=== PATIENT | female | born 1970 | race Caucasian/White ===

== ENCOUNTER 2024-07-16 09:05 | Day surgery (SDC) | payer OTHER, SELFPAY ==
--- NOTE | 2024-07-08 17:08 | PCM.HP.BLA ---
History and Physical Date of Admission: 07/16/24 HPI: The patient is a 54 year old female presenting for pre-operative visit. She is scheduled for Hysteroscopy D&C, for AUB on 07/16/24. Procedure discussed along with risks, benefits and complications. Other alternatives discussed for management. Consent form signed? Yes. PAST MEDICAL HISTORY PAST MEDICAL HISTORY Diagnosis Date ? Depression ? High cholesterol PAST SURGICAL HISTORY PAST SURGICAL HISTORY Procedure Laterality Date ? APPENDECTOMY 1994 ? COLONOSCOPY SCREENING 2018 ? EXTRACTION ERUPTED TOOTH/EXR unknown date ? LITHOTRIPSY XTRCORP SHOCK WAVE 2009 Renal Lithotripsy CURRENT MEDICATIONS Current Outpatient Medications Medication Sig Dispense Refill ? atorvastatin (LIPITOR) 20 mg tablet Take 20 mg by mouth. ? ARIPiprazole (ABILIFY) 2 mg tablet Take 2 mg by mouth. ? albuterol HFA (PROVENTIL HFA, VENTOLIN HFA) 90 mcg/actuation inhaler Inhale 2 puffs every 4 hours by inhalation route as needed. ? sertraline (ZOLOFT) 100 mg tablet Take 200 mg by mouth. ? Cetirizine 10 mg cap Take 10 mg by mouth. No current facility-administered medications for this visit. ALLERGIES: Patient has no allergy information on record. PERSONAL HISTORY: SOCIAL HISTORY Social History Tobacco Use ? Smoking status: Never ? Smokeless tobacco: Never Vaping Use ? Vaping status: Never Used Substance Use Topics ? Alcohol use: Yes Comment: rare ? Drug use: Not Currently FAMILY HISTORY: FAMILY HISTORY FAMILY HISTORY Problem Relation Age of Onset ? Depression Mother ? Diabetes Mother ? other (hypercholesterolemia [other]) Mother ? other (htn) Mother ? Thyroid Mother Thyroid disease ? Alcohol abuse Father ? other (cva) Father ? Ischemic Heart Disease Father ? Diabetes Father ? other (hypercholesterolemia [other]) Father ? other (TIA) Father ? Parkinson's Father ? other (hypercholesterolemia [other]) Brother ? Brain Cancer Maternal Grandmother ? other (cardiac disorder) Maternal Grandfather ? other (htn) Maternal Grandfather ? other (CVA) Maternal Grandfather ? other (Cardiac disorder) Paternal Grandfather ? other (htn) Paternal Grandfather ? Diabetes Paternal Grandfather REVIEW OF SYMPTOMS: GENERAL: denies fevers or chills ENDOCRINOLOGY: has not been on steroids Cardiology : denies palpitations or chest pain Respiratory: denies SOB or cough Hematology: denies history of prolonged bleeding or easy bruising or VTE Allergy: Denies history of personal or family history of allergy to anesthesia PHYSICAL EXAMINATION: VITALS: Last menstrual period 06/07/2024. GENERAL: The patient is well nourished, well hydrated in no acute distress. , The patient is oriented to time, place, and person. WET PREP: Not indicated IMPRESSION: PMB, thickened endometrium PLAN: The risks/benefits/alternatives and personal involved for the planned hysteroscopy D&C were reviewed with the patient. Her questions were answered to her satisfaction and she desires to proceed. Consent was signed. I reviewed with her postop instructions and expectations. I have reviewed and updated past medical and surgical history, medications and allergies Assessment & Plan Assessment/Plan (1) PMB (postmenopausal bleeding): (2) Endometrial thickening on ultrasound:
[2024-07-10 16:33] LABS: Hematocrit 42.6 % (37-47); Hemoglobin 13.6 g/dL (12.0-15.0); Mean Corp Hgb Conc 31.9 g/dL (32-36); Mean Corpuscular Hgb 27.2 pg (27.0-32.0); Mean Corpuscular Volume 85.2 fL (81-99); Mean Platelet Vol. 9.5 fl (6.2-12.0); Platelet Count 317 K/mm3 (150-450); RBC Distribution Width CV 12.6 % (11.6-14.6); RBC Distribution Width SD 39.2 fl (35.1-43.9); White Blood Count 7.5 K/mm3 (4.4-11.0)
[2024-07-10 16:37] LABS: Internal QC Validated? YES +Cl - CLEAR BKGD; Pregnancy, Urine Negative Negative
[2024-07-10 17:11] LABS: ALB/GLOB Ratio 0.9 RATIO (0.9-2.4); AST(SGOT) 25 U/L (15-37); Alanine Aminotransfer ALT/SGPT 34 U/L (13-56); Albumin, Serum 3.4 g/dL (3.2-5.0); Alkaline Phosphatase 150 U/L (45-117); Anion Gap 5 (5-15); BUN 13 mg/dL (7-18); BUN/Creat Ratio 17.3 RATIO (10-20); Calcium,Total 8.9 mg/dL (8.5-10.1); Chloride 106 mmol/L (98-107); Creatinine, Serum 0.75 mg/dL (0.55-1.02); EST Glomerular Filtration Rate 85 mL/min (>60); Est Glom Filt Rate - Afr Amer 102 mL/min (>60); Follicle Stimulating Hormone 14.9 mIU/mL; Globulin 3.9 g/dL (2.2-4.2); Glucose 82 mg/dL (74-106); Protein, Total 7.3 g/dL (6.4-8.2); Sodium Level 138 mmol/L (136-145)
[2024-07-14 20:08] LABS: Estrogen, Total, Serum 185 pg/mL (40-244)
[2024-07-16] VITALS (9 sets, daily range): BP systolic 106–140; BP diastolic 57–97; PULSE 63–90; RESP 16–18; TEMP 36.3–36.6; O2SAT 93–97; BMI 41.5
[2024-07-16 09:36] LABS: Internal QC Validated? YES +Cl - CLEAR BKGD; Pregnancy, Urine Negative Negative
[2024-07-16] MEDS: Ketorolac 30 MG/ML Syringe IV (09:49)
[2024-07-16] MEDS: Acetaminophen 500 MG Tablet 1000 MG PO (09:49)
--- NOTE | 2024-07-16 10:29 | PCM.PRE.AN2 ---
ASA Classification* ASA Classification ASA Classification: 3 Assessment & Plan Anesthesia* Anesthesia Assessment Anesthesia Assessment: Discussed sedation and/or anesthesia options, risks, benefits, and alternatives with patient/parents/legal guardian/POA. Questions invited. The patient/parents/legal guardian/POA seems to understand and agrees to proceed with anesthesia plan. Reviewed the physical assessment, medical history, allergy history and patient home medications list prior to surgery/procedure/anesthetic and documented any changes. Performed airway and anesthesia risk assessments. Anesthesia Type Anesthesia Type: MAC (see written pre anesthesia record for full assessment) Anesthesia Focused Assessment* Temperature: 97.3 F Pulse Rate: 63 Blood Pressure: 140/90 Respiratory Rate: 16 Pulse Ox: 97 Airway Assessment Mouth opens: >3 cm Mallampati Score: II Focused Labs Anesthesia Preop lab: CBC WBC 7.5 K/mm3 (4.4-11.0) 07/10/24 16:08 RBC 5.00 M/mm3 (4.2-5.4) 07/10/24 16:08 Hgb 13.6 g/dL (12.0-15.0) 07/10/24 16:08 Hct 42.6 % (37-47) 07/10/24 16:08 Plt Count 317 K/mm3 (150-450) 07/10/24 16:08 CHEMISTRY Potassium 4.0 mmol/L (3.5-5.1) 07/10/24 16:08 Sodium 138 mmol/L (136-145) 07/10/24 16:08 BUN 13 mg/dL (7-18) 07/10/24 16:08 Creatinine 0.75 mg/dL (0.55-1.02) 07/10/24 16:08 Glucose 82 mg/dL (74-106) 07/10/24 16:08 COAG Urine Test Negative Negative 07/16/24 09:20 Pre-Assessment Diagnosis/Proposed Procedure Planned Operative Procedure(s): (N/A) Hysteroscopy,D&C, possible polyp resection, Symphion Anesthesia History 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 When Was Last Pacemaker Check QUESTION #4 FULL TEXT: You/Your Family Experience fever (hyperthermia) with Anesthesia Last Oral Intake Last Oral intake: Last Oral Intake NPO since 22:00 07/16/24 09:31 Meds taken in AM with sips of No 07/16/24 09:31 water? Meds patient instructed to take am of surgery PONV PONV - associate professor of theology: PONV - associate professor of theology Female Yes 07/09/24 13:28 HX of Motion Sickness Yes 07/09/24 13:28 HX of N/V After Surgery No 07/09/24 13:28 Non-Smoker Yes 07/09/24 13:28 Duration of Surgery greater No 07/09/24 13:28 than 60 minutes Number of Risk Factors 3 07/09/24 13:28 PONV Score Moderate Risk 07/09/24 13:28 Height & Weight Height & Weight: Anesthesia: Height & Weight Height 5 ft 3 in 07/16/24 09:31 Weight: 106.5 kg 07/16/24 09:31 Body Mass Index (BMI) 41.5 07/16/24 09:31 Respiratory Assessment Respiratory Assessment - associate professor of theology: Respiratory Tract Infection Hx - associate professor of theology Hx Respiratory Tract Infection No 07/09/24 13:28 STOP Sleep Apnea STOP Sleep Apnea - associate professor of theology: STOP Sleep Apnea - associate professor of theology Hx Hypertension No 07/09/24 13:28 Hx Sleep Apnea No 07/09/24 13:28 CPAP BIPAP Do you snore loudly (louder No 07/09/24 13:28 than talking or can be heard Do you often feel tired/ No 07/09/24 13:28 fatigued/ sleepy during daytime? Has anyone observed you stop No 07/09/24 13:28 breathing during sleep? STOP Results Negative 07/09/24 13:28 QUESTION #5 FULL TEXT : Do you snore loudly (louder than talking or can be heard through closed doors)? 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 Specify any problems Hx of Preganancy in last 3 N/A 07/09/24 13:28 Months Nurse Filling Out Transfusion NBUCHER 07/09/24 13:28 & Questions: Date: 07/09/24 07/09/24 13:28 Time: 13:29 07/09/24 13:28 Patient unable to answer at this time (ie. confused, unrespo /Reproduction History /Reproductive History - associate professor of theology: /Reproductive Hx- associate professor of theology Hx Now No 07/09/24 13:28 Gestational Age (in weeks): EDC: Hx Hx Para Hx Section SAB No 07/09/24 13:28 Active Medications Active Medications: Current Medications Generic Name Dose Route Start Last Admin Trade Name Freq PRN Reason Stop Dose Admin Acetaminophen 1,000 mg 07/16/24 10:35 07/16/24 09:49 Acetaminophen 500 Mg Tablet PO 07/16/24 10:36 1,000 mg PREOP ONE Administration Ketorolac Tromethamine 30 mg 07/16/24 10:35 07/16/24 09:49 Ketorolac 30 Mg/Ml Syringe IV 07/16/24 10:36 30 mg PREOP ONE Administration PFSH Medical History Wears glasses Depression High cholesterol Migraine headache Non-smoker History of kidney stones Home Medications ?Medication ?Instructions ?Recorded ?Last Taken ?Type aripiprazole 2 mg tablet 2 mg PO DAILY 07/09/24 Unknown History atorvastatin 20 mg tablet 20 mg PO DAILY 07/09/24 Unknown History sertraline 100 mg tablet 100 mg PO BID 07/09/24 Unknown History Allergy/AdvReac Type Severity Reaction Status Date / Time tree nut Allergy Severe Anaphylaxis Verified 07/09/24 13:27 Surgical History History of appendectomy Social History Smoking Status: Never smoker Review of Systems (Anesthesia) ROS Narrative System reviewed and no additional complaints, except as documented.
--- NOTE | 2024-07-16 10:35 | EMB_PTH ---
PATHOLOGY RESULTS PATIENT: JONO LEMON LOC: [facility] [place] U#:[id number] AGE/SX: 54/F ROOM: RE07/16/[address]: Dr. Purvi Hendrix MD : 1970 BED: DIS: 07/16/2024 SPEC #: [id number] RECD: 07/16/24 13:47 STATUS: OBDULIO GALINDO #: [id number] MELANY: 07/16/24 10:[address]: Purvi Hendrix DEPT: SURGICAL PATHOLOGY RECD BY: Isaac Lauren ENTERED: 07/16/24 14:39 SP TYPE: ENDOM BX/C HEBERT DR: Dr. Jewell Aguilar MD Tissues: Endometrium, NOS Procedures: Surgery Specimen Level IV HEADER OPERATION: Hysteroscopy, D&C PRE-OP DIAGNOSIS: Post menopausal bleeding, endometrial thickening on ultrasound TISSUE SUBMITTED: Endometrial curettings MICROSCOPIC DIAGNOSIS Endometrium, curettings: Polypoid fragments of simple cystic change. Perimenstral endometrium with glandular and stromal breakdown. Rare fragments of benign squamous and endocervical mucosa. See comment. 07/17/2024 COMMENT Benign endometrial polyps are likely. Clinical correlation is suggested. MICROSCOPIC DESCRIPTION Slides are reviewed. GROSS DESCRIPTION Received in fixative is one container labeled with the patient's name and designated Endometrial curettings. The specimen consists of multiple irregular fragments of pink-lundy hemorrhagic soft tissue that in aggregate measure 4.0 x 3.0 x 0.2 cm. The specimen is totally submitted in two cassettes. 07/16/2024 TC:5 CPT:02319
[2024-07-16] MEDS: Lidocaine 1% /Epi 1:100 (20ml) 20 ML Vial (10:51)
--- NOTE | 2024-07-16 11:05 | DCINST_ITS ---
Discharge Instructions Diet Discharge Diet: No restrictions Activity Discharge Activity: May Drive (07/17/24) and May Take a Tub Bath (in 1 week) Return to work on:: 07/17/24 May shower in (days): 1 May resume sexual activity in: 1-2 weeks and 2 weeks Lifting Restrictions: none Dressing / Incision Call your doctor if your incision/area has: Sudden Increased Bleeding and Foul Smelling Discharge Call your doctor if you observe: Fever of 101 or Higher and Using more than 1 pad per hour (for 2 hrs in a row) Follow Up Care Please Follow Up With: Purvi Hendrix MD When: You do not need a postop appointment. We will contact you next week with your pathology results. Send a CallYourPrice message or call [phone] to make an appointment or with any concerns. Test Results: Test results from this visit will be discussed in further detail at your follow- up appointment, if applicable. Discharge Plan Admission Primary Reason for Your Visit: Hysteroscopy D&C Attending Provider: Purvi Hendrix Primary Care Provider: Jewell Aguilar Instructions Print Language: Bengali Discharge Orders/Prescriptions Prescriptions: Continued atorvastatin 20 mg tablet 20 mg PO DAILY sertraline 100 mg tablet 100 mg PO BID aripiprazole 2 mg tablet 2 mg PO DAILY Disposition Disposition (needs filled in before D/C Order can be placed): Home, Self Care
--- NOTE | 2024-07-16 11:06 | PCM.OPRPT ---
Problems Associated Problem List Diagnoses (1) Endometrial thickening on ultrasound: (2) PMB (postmenopausal bleeding): Operative Report (Standard) Operative Information Surgery/Procedure Performed: Hysteroscopy D&C Surgeon: Purvi Hendrix Date of Procedure: 07/16/24 Procedure Start Time: 10:48 Procedure Stop Time: 10:57 Pre-Operative Diagnosis: Abnormal uterine bleeding, thickened endometrium on the pelvic Post-Operative Diagnosis: Same Select all DRAINS/GRAFTS/IMPLANTS that apply: None Type of Anesthesia: MAC/Supplemental/Local Special Medications: None Estimated Blood Loss: 10 Fluids Replaced: 0 Specimen collected: Yes Description of specimen(s) removed: Endometrial curettings Description of surgery: The patient was taken to the OR where she was prepped and draped in dorsal lithotomy position. The weighted speculum was placed in the vagina and the anterior lip of the cervix was grasped with a single-tooth tenaculum. A paracervical block was administered with 1% lidocaine with 1-100,000 epinephrine solution. The cervix was dilated serially with Hegar dilators. The 5mm hysteroscope was placed into the uterine cavity and the above findings were noted. Bilateral tubal ostia were identified. The hysteroscope was removed. A gentle sharp curettage was done of the uterine cavity. The instruments were removed from the vagina. The specimen was handed off and sent to pathology. All sponge and needle counts were correct. Vaginal sweep was performed by me. The patient was awakened and taken to the recovery room in stable condition. Hysteroscopic fluid deficit 50 cc of normal saline Findings: Endometrial cavity: Normal, no fibroids or polyps noted Cervix: Normal Vagina: Normal Surgical Findings: Normal endometrium, no focal abnormalities. Normal tubal ostia bilaterally. Normal cervix and vagina. 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
--- NOTE | 2024-07-16 11:06 | PCM.POST.ANE ---
Anesthesia: Postop Eval I Current Vital Signs Temperature: 97.8 F Pulse Rate: 90 Blood Pressure: 109/57 Respiratory Rate: 16 Pulse Ox: 93 Oxygen Delivery Method: Room Air Assessment Airway patent: Yes Spontaneous unlabored respirations: Yes Mental status: Awake and Calm nausea: No Vomiting: No Anesthesia Complication: No Fluid Hydration Crystalloid volume administer (ml): 10 Total IV fluid infused: 10 Progress Note Anesthesia document: Postop Eval 1 completed: Yes
--- NOTE | 2024-07-16 11:13 | PCM.POSTANE2 ---
Anesthesia Postop Eval I Sum Postop Eval Completion status Anesthesia document: Postop Eval 1 completed: Yes Anesthesia Postop Eval I Summary Anesthesia Postop Eval I Summary: Anesthesia Postop Eval I: Assessment Summary Airway patent Yes 07/16/24 11:07 LEARNING DESIGN SPECIALIST.JASSOBJeremy Spontaneous unlabored Yes 07/16/24 11:07 LEARNING DESIGN SPECIALISTALEXEI respirations Mental status Awake,Calm 07/16/24 11:07 LEARNING DESIGN SPECIALIST.RICARDO nausea No 07/16/24 11:07 LEARNING DESIGN SPECIALIST.RICARDO Vomiting No 07/16/24 11:07 LEARNING DESIGN SPECIALISTALEXEI Anesthesia Postop Eval I: Fluid Summary Crystalloid volume administer 10 07/16/24 11:07 TERRY.RICARDO (ml) Colloids volume administered ( ml) Blood Product volume administered (ml) Total IV fluid infused 10 07/16/24 11:07 CHRIST Anesthesia Postop Eval I: Summary Notes Anesthesia Complication No 07/16/24 11:07 CHRIST Anesthesia Complication Comment: Post-operative progress note Anesthesia: Postop Eval II Evaluation Mental status: Awake Pain Level: 0 nausea: No Vomiting: No
== END 2024-07-16 12:03 | disposition home or self-care (01) ==
LOC: SDC 09:06
PROVIDERS: Anesthesiology; PCP Internal Medicine; Referring Provider Obstetrics & Gynecology; Visit Provider Obstetrics & Gynecology
PROC: 0UB98ZZ Excision of Uterus, Via Natural or Artificial Opening Endoscopic (ICD-10-PCS; CPT 58558; principal; 2024-07-16 10:20)
DX: N95.0 Postmenopausal bleeding (principal); E78.00 Pure hypercholesterolemia, unspecified; F32.A Depression, unspecified; Z79.899 Other long term (current) drug therapy
CPT/HCPCS: 58558; 00952; 36415; 80053; 81025; 82672; 83001; 85027; 88305; A4216; J2405

== ENCOUNTER 2024-10-22 07:34 | Day surgery (SDC) | payer OTHER, SELFPAY ==
--- NOTE | 2024-09-30 15:46 | HP.PCM_ITS ---
History and Physical Date of Admission: 10/22/24 HPI: The patient is a 54 year old female presenting for pre-operative visit. She is scheduled for LAVH and BSO, possible cystoscopy, for AUB, uterine fibroids on 10/22/24. Procedure discussed along with risks, benefits and complications. Other alternatives discussed for management. Consent form signed? Yes. PAST MEDICAL HISTORY PAST MEDICAL HISTORY Diagnosis Date ? Depression ? High cholesterol PAST SURGICAL HISTORY PAST SURGICAL HISTORY Procedure Laterality Date ? APPENDECTOMY 1994 ? COLONOSCOPY SCREENING 2018 ? D&C, DIAG AND/OR THERAPEUTIC 07/16/2024 hysteroscopy ? EXTRACTION ERUPTED TOOTH/EXR unknown date ? LITHOTRIPSY XTRCORP SHOCK WAVE 2008 Renal Lithotripsy CURRENT MEDICATIONS Current Outpatient Medications Medication Sig Dispense Refill ? SUMAtriptan (IMITREX) 50 mg tablet ? MAGNESIUM ORAL Take by mouth. ? norethindrone (AYGESTIN) 5 mg tablet 1 tab 3x/day until bleeding stops. 1 tab 2x/day x 2 days. 1 tab daily x 5 days 35 tablet 0 ? atorvastatin (LIPITOR) 20 mg tablet Take 20 mg by mouth. ? ARIPiprazole (ABILIFY) 2 mg tablet Take 2 mg by mouth. ? albuterol HFA (PROVENTIL HFA, VENTOLIN HFA) 90 mcg/actuation inhaler Inhale 2 puffs every 4 hours by inhalation route as needed. ? sertraline (ZOLOFT) 100 mg tablet Take 200 mg by mouth. No current facility-administered medications for this visit. ALLERGIES: Nut - Unspecified PERSONAL HISTORY: SOCIAL HISTORY Social History Tobacco Use ? Smoking status: Never ? Smokeless tobacco: Never Vaping Use ? Vaping status: Never Used Substance Use Topics ? Alcohol use: Yes Comment: rare ? Drug use: Not Currently FAMILY HISTORY: FAMILY HISTORY FAMILY HISTORY Problem Relation Age of Onset ? Depression Mother ? Diabetes Mother ? other (hypercholesterolemia [other]) Mother ? other (htn) Mother ? Thyroid Mother Thyroid disease ? Alcohol abuse Father ? other (cva) Father ? Ischemic Heart Disease Father ? Diabetes Father ? other (hypercholesterolemia [other]) Father ? other (TIA) Father ? Parkinson's Father ? other (hypercholesterolemia [other]) Brother ? Brain Cancer Maternal Grandmother ? other (cardiac disorder) Maternal Grandfather ? other (htn) Maternal Grandfather ? other (CVA) Maternal Grandfather ? other (Cardiac disorder) Paternal Grandfather ? other (htn) Paternal Grandfather ? Diabetes Paternal Grandfather REVIEW OF SYMPTOMS: GENERAL: denies fevers or chills ENDOCRINOLOGY: has not been on steroids Cardiology : denies palpitations or chest pain Respiratory: denies SOB or cough Hematology: denies history of prolonged bleeding or easy bruising or VTE Allergy: Denies history of personal or family history of allergy to anesthesia PHYSICAL EXAMINATION: VITALS: Blood pressure 142/86, weight 111.1 kg (245 lb), last menstrual period 09/23/2024. GENERAL: The patient is well nourished, well hydrated in no acute distress. , The patient is oriented to time, place, and person. NECK: Supple. No lynphadenopathy, normal thyroid, no thyromegaly. LUNGS: Clear to auscultation bilaterally. no wheezes, rhonchi or rales HEART: Regular rate and rhythm, Normal heart sounds, and No murmurs or gallops GENITALIA: Normal external genitalia, Urethral meatus normal, Bladder nontender, normal vagina and normal vaginal tone, normal cervix, normal uterus, size and consistency, normal adnexa without masses or tenderness, and perineum WNL PELVIC US 06/25/24: Indication Postmenopausal bleeding, fibroid Impression Anteverted fibroid uterus that measures 98 mm x 47 mm x 59 mm. The largest fibroids are described below. Endometrium measures 7.8 mm which is abnormally thickened in menopause. Normal appearing left ovary. Right ovary is not visualized. No adnexal masses were observed. There is no free fluid visualized in the peritoneal cavity. Recommendations Recommend endometrial evaluation as clinically indicated. Menstrual History LMP on 06/12/2024. Cycle: irregular cycle Method Transabdominal, transvaginal, 3D ultrasound examination, Color Doppler exam ination Uterus Uterus: Visualized Uterus position: anteverted Description of uterine malformations: none Myometrium: heterogeneous Endometrium: homogenous Cervix details: cystic lesions identified suggesting superficial Nabothian cysts Uterus length 98 mm Uterus width 59 mm Uterus height 47 mm Uterus Vol 139.8 cm? Endometrial thickness, total 7.8 mm Uterine fibroid D1 8 mm Uterine fibroid D2 8 mm Uterine fibroid D3 10 mm Uterine fibroid mean 8.7 mm Uterine fibroid vol 0.335 cm? Uterine fibroids findings: Left lateral anterior wall. intramural Right Ovary Rt ovary: Not visualized Left Ovary Lt ovary: Visualized Lt ovary morphology: premenopausal normal follicular Lt ovary D1 34 mm Lt ovary D2 24 mm Lt ovary D3 22 mm Lt ovary Vol 9.4 cm? Cul de Sac Visualized. no free fluid visualized IMPRESSION: uterine fibroids, AUB PLAN: The risks/benefits/alternatives and personal involved for the planned LAVH, BSO, possible cystoscopy were reviewed with the patient. Her questions were answered to her satisfaction and she desires to proceed. Consent was signed. I reviewed with her postop instructions and expectations. I have reviewed and updated past medical and surgical history, medications and allergies Assessment & Plan Assessment/Plan (1) Abnormal uterine bleeding: (2) Uterine fibroid:
--- NOTE | 2024-10-12 08:03 | EKG12_ITS ---
Test Reason : PREOP Blood Pressure : */* mmHG Vent. Rate : 69 BPM Atrial Rate : 69 BPM P-R Int : 150 ms QRS Dur : 78 ms QT Int : 390 ms P-R-T Axes : 51 3 31 degrees QTcB Int : 417 ms Normal sinus rhythm with sinus arrhythmia Normal ECG Confirmed by JOEY SORIANO, YUSUF ([id number]), editorial clerk LILY ZAFAR ([id number]) on 10/12/2024 11:02:53 AM Referred By: Purvi Hendrix Confirmed By: YUSUF COOK MD
[2024-10-12 09:26] LABS: Magnesium 2.5 mg/dL (1.6-2.6)
[2024-10-22] VITALS (11 sets, daily range): BP systolic 108–137; BP diastolic 63–80; PULSE 67–80; RESP 16–18; TEMP 36.6–36.9; O2SAT 90–100; BMI 43.5
[2024-10-22 08:26] LABS: Internal QC Validated? YES +Cl - CLEAR BKGD; Pregnancy, Urine Negative Negative; Record Kit Lot#,Urine Preg 885059
[2024-10-22 08:26] LABS: Bedside Glucose 106 mg/dL (74-106)
[2024-10-22] MEDS: Gabapentin 600 MG Tablet PO (08:29)
[2024-10-22] MEDS: Acetaminophen 500 MG Tablet 1000 MG PO (08:29)
[2024-10-22] MEDS: Enoxaparin 40 MG/0.4 ML Syringe SC (08:30)
[2024-10-22] MEDS: Celecoxib 200 MG Capsule 400 MG PO (08:30)
[2024-10-22] MEDS: Scopolamine 1mg/72hr Patch 1 PATCH TD (08:30)
[2024-10-22] MEDS: Phenazopyridine 95 MG Tablet 190 MG PO (08:30)
[2024-10-22] MEDS: 0.9% Normal Saline (1000mL) 1,000 ML 15 ML IV (08:31)
[2024-10-22] MEDS: Magnesium 1 GM over 15 mins IV (08:31)
--- NOTE | 2024-10-22 09:35 | PCM.PRE.AN2 ---
ASA Classification* ASA Classification ASA Classification: 3 Assessment & Plan Anesthesia* Anesthesia Assessment Anesthesia Assessment: Discussed sedation and/or anesthesia options, risks, benefits, and alternatives with patient/parents/legal guardian/POA. Questions invited. The patient/parents/legal guardian/POA seems to understand and agrees to proceed with anesthesia plan. Reviewed the physical assessment, medical history, allergy history and patient home medications list prior to surgery/procedure/anesthetic and documented any changes. Performed airway and anesthesia risk assessments. Anesthesia Type Anesthesia Type: General History Source History Obtained from:: Patient and Chart Anesthesia Focused Assessment* Temperature: 98.4 F Pulse Rate: 67 Blood Pressure: 137/68 Respiratory Rate: 16 Pulse Ox: 100 Oxygen Delivery Method: Room Air Airway Assessment Mouth opens: 2 cm Mallampati Score: III Teeth Condition: Caps/Crowns (Left lower molar has a crown. It is tight.) Neck Range of motion (ROM): Full ROM Focused Labs Anesthesia Preop lab: CBC WBC 7.5 K/mm3 (4.4-11.0) 07/10/24 16:08 07/10/24 RBC 5.00 M/mm3 (4.2-5.4) 07/10/24 16:08 07/10/24 Hgb 13.6 g/dL (12.0-15.0) 07/10/24 16:08 07/10/24 Hct 42.6 % (37-47) 07/10/24 16:08 07/10/24 Plt Count 317 K/mm3 (150-450) 07/10/24 16:08 07/10/24 CHEMISTRY Potassium 4.0 mmol/L (3.5-5.1) 07/10/24 16:08 07/10/24 Sodium 138 mmol/L (136-145) 07/10/24 16:08 07/10/24 Magnesium 2.5 mg/dL (1.6-2.6) 10/12/24 08:10/12/24 BUN 13 mg/dL (7-18) 07/10/24 16:08 07/10/24 Creatinine 0.75 mg/dL (0.55-1.02) 07/10/24 16:08 07/10/24 Glucose 82 mg/dL (74-106) 07/10/24 16:08 07/10/24 POC Glucose 106 mg/dL (74-106) 10/22/24 08:06 10/22/24 COAG Urine Test Negative Negative 10/22/24 08:02 10/22/24 Pre-Assessment Diagnosis/Proposed Procedure Planned Operative Procedure(s): (B) Hysterectomy,LAVH, bilateral salpingo oophorectomy, possible cystoscopy Anesthesia History Anesthesia History - registered travel nurse: Anesthesia History - registered travel nurse Hx Hospitalization No 10/08/24 14:17 Any Problems With Anesthesia No 10/08/24 14:17 Cholinesterase deficiency No 10/08/24 14:17 You/Your Family Experience No 10/08/24 14:17 fever (hyperthermia) with Relationship Recent Exposure to Contagious No 10/22/24 08:17 Disease Does patient have nerve No 10/08/24 14:17 stimulator Patient instructed to have device shut off --Does patient have Pacemaker No 10/22/24 08:18 or ICD? When Was Last Pacemaker Check QUESTION #4 FULL TEXT: You/Your Family Experience fever (hyperthermia) with Anesthesia Last Oral Intake Last Oral intake: Last Oral Intake NPO since 06:00 10/22/24 08:18 Meds taken in AM with sips of No 10/22/24 08:18 water? Meds patient instructed to take am of surgery Any additional information?: Yes NPO since: 06:00 (Patient took her preop Ensure at 6 AM.) PONV PONV - registered travel nurse: PONV - registered travel nurse Female Yes 10/08/24 14:17 HX of Motion Sickness Yes 10/08/24 14:17 HX of N/V After Surgery No 10/08/24 14:17 Non-Smoker Yes 10/08/24 14:17 Duration of Surgery greater Yes 10/08/24 14:17 than 60 minutes Number of Risk Factors 4 10/08/24 14:17 PONV Score Severe Risk 10/08/24 14:17 Height & Weight Height & Weight: Anesthesia: Height & Weight Height 5 ft 3 in 10/22/24 08:18 Weight: 111.584 kg 10/22/24 08:18 Body Mass Index (BMI) 43.5 10/22/24 08:18 Respiratory Assessment Respiratory Assessment - registered travel nurse: Respiratory Tract Infection Hx - registered travel nurse Hx Respiratory Tract Infection No 10/08/24 14:17 STOP Sleep Apnea STOP Sleep Apnea - registered travel nurse: STOP Sleep Apnea - registered travel nurse Hx Hypertension No 10/08/24 14:17 Hx Sleep Apnea No 10/08/24 14:17 CPAP BIPAP Do you snore loudly (louder No 10/08/24 14:17 than talking or can be heard Do you often feel tired/ No 10/08/24 14:17 fatigued/ sleepy during daytime? Has anyone observed you stop No 10/08/24 14:17 breathing during sleep? STOP Results Negative 10/08/24 14:17 QUESTION #5 FULL TEXT : Do you snore loudly (louder than talking or can be heard through closed doors)? Tobacco Use History Tobacco Use History - registered travel nurse: Tobacco Use History - registered travel nurse Tobacco Use Smoking Status Never smoker 10/08/24 14:17 Hx Tobacco Use No 10/08/24 14:17 Years Smoking Packs Smoked per Day Smoking Cessation Date was within the last 15 years Hx Smoking Cessation Date Hx Smoking Cessation Counseling Hematologic Medial History Hematologic Hx - registered travel nurse: Hematologic Medical Hx - customer solutions specialist Hx of Blood Transfusion No 10/08/24 14:17 Hx of Transfusion in last 3 No 10/08/24 14:17 Months Date of Last Transfusion (if within last 3 months) Ever experience any problems No 10/08/24 14:17 with transfusion(s)? Specify any problems Hx of Preganancy in last 3 N/A 10/08/24 14:17 Months Nurse Filling Out Transfusion NBUCHER 10/08/24 14:17 & Questions: Date: 10/08/24 10/08/24 14:17 Time: 14:18 10/08/24 14:17 Patient unable to answer at this time (ie. confused, unrespo /Reproduction History /Reproductive History - registered travel nurse: /Reproductive Hx- registered travel nurse Hx Now No 10/08/24 14:17 Gestational Age (in weeks): EDC: Hx Hx Para Hx Section SAB No 10/08/24 14:17 Active Medications Active Medications: Current Medications Generic Name Dose Route Start Last Admin Trade Name Freq PRN Reason Stop Dose Admin Lactated Ringer's 1,000 mls @ 40 mls/hr 10/22/24 07:30 IV .Q25H NICOLAS Lactated Ringer's 1,000 mls @ 40 mls/hr 10/22/24 08:30 IV .Q25H NICOLAS Sodium Chloride 1,000 mls @ 15 mls/hr 10/22/24 08:30 10/22/24 08:31 IV 10/27/24 21:49 15 mls/hr .Q48H NICOLAS Administration Protocol Insulin Human Lispro 0 unit 10/22/24 07:30 Insulin Lispro 100 Unit/Ml Insuln.Pen SC 10/22/24 13:30 Q4H PRN PRN BG >/= 180, SEE PROTOCOL Protocol PFSH Medical History Wears glasses Depression High cholesterol Migraine headache Non-smoker History of kidney stones Home Medications ?Medication ?Instructions ?Recorded ?Last Taken ?Type aripiprazole 2 mg tablet 2 mg PO DAILY 07/09/24 10/21/24 06:30 History atorvastatin 20 mg tablet 20 mg PO DAILY 07/09/24 10/21/24 06:30 History sertraline 100 mg tablet 200 mg PO DAILY 07/09/24 10/21/24 06:30 History norethindrone acetate 5 mg tablet 5 mg PO DAILY 10/08/24 10/21/24 06:30 History magnesium citrate 100 mg tablet 100 mg PO DAILY 10/22/24 10/21/24 06:30 History Allergy/AdvReac Type Severity Reaction Status Date / Time tree nut Allergy Severe Anaphylaxis Verified 10/22/24 08:11 Surgical History History of D&C (07/16/24) History of appendectomy (~1994) Social History Smoking Status: Never smoker Review of Systems (Anesthesia) ROS Narrative System reviewed and no additional complaints, except as documented.
--- NOTE | 2024-10-22 09:40 | HYST_PTH ---
PATIENT: JONO LEMON LOC: [facility] [place] U#:[id number] AGE/SX: 54/F ROOM: RE10/22/[address]: Dr. Purvi Hendrix MD : 1970 BED: DIS: 10/22/2024 SPEC #: [id number] RECD: 10/22/24 14:45 STATUS: OBDULIO REPetr #: [id number] MELANY: 10/22/24 09:[address]: Purvi Hendrix DEPT: SURGICAL PATHOLOGY RECD BY: Isaac Lauren ENTERED: 10/23/24 08:32 SP TYPE: HYSTERECT OTHR DR: Dr. Jewell Aguilar MD Tissues: Uterus, NOS Procedures: Surgery Specimen Level V HEADER OPERATION: Hysterectomy, LAVH, bilateral salping-oopherectomy PRE-OP DIAGNOSIS: Abnormal uterine bleeding, uterine fibroid TISSUE SUBMITTED: Uterus, cervix, bilateral ovaries and fallopian tubes MICROSCOPIC DIAGNOSIS Uterus, cervix, bilateral ovaries and fallopian tubes, hysterectomy, bilateral salping-oopherectomy: Cervix - Mild chronic inflammation squamous metaplasia. Endometrium - Weakly proliferative endometrium. Myometrium - Adenomyosis. Bilateral fallopian tubes- No pathologic diagnosis. Right ovary- Physiologic hemorrhagic cyst. Left ovary- Mesothelial inclusion cysts. Left paratubal cysts. . 10/26/2024 MICROSCOPIC DESCRIPTION Slides are reviewed. GROSS DESCRIPTION Received in fixative is one container labeled with the patient's name and designated uterus, cervix, bilateral ovaries and fallopian tubes. The specimen consists of a hysterectomy specimen consisting of uterus with cervix and attached bilateral fallopian tubes and ovaries. The uterus with cervix weighs 125 gm and measures 9.5 x 8 x 6 cm. The serosal surface is lundy glistening. The ectocervical mucosa is unremarkable. The external os is oval in contour. The endocervical canal measures 3 cm in length and the endocervical mucosa is lundy glistening and unremarkable. The triangular endometrial cavity measures 5 cm in length and 2.5 cm in width. The endometrium is lundy, glistening without any mass lesions and measures 0.1 cm in thickness. Sections of the uterine wall do not reveal any mass lesions and measures up to 2.5cm in thickness. Right fallopian tube measures 5.5cm in length and 0.6cm in diameter. Fimbrial end is identified. Right ovary measures 2.5 x 1.5 x 1.3cm. Sections reveal a hemorrhagic cyst measuring 0.6cm in greatest dimension. The left fallopian tube has similar appearance to right and measures 5.5cm in length and 0.6cm in diameter. Fimbrial end is identified. Two paratubal cysts are noted measuring 0.6 and 2.5cm in greatest dimensions and filled with clear fluid. The left ovary has similar appearance as to right and measures 2 x 2 x 1.2cm. Sections reveal unremarkable cut surfaces. No tuboovarian adhesions are identified on right or left side. Atomic Process Engineer sections are submitted in ten cassettes as follows: 1 - anterior cervix, 2 - posterior cervix, 3 & 4 - anterior uterine wall, 5 & 6 - posterior uterine wall, 7- right fallopian tube, 8- right ovary, 9- left fallopian tube and paratubal cysts, 10- left ovary. SJ: 10/23/2024 TC:5 CPT: 35482
[2024-10-22] MEDS: Cefazolin 2 GM in Syringe 10 ML IV (10:26)
[2024-10-22] MEDS: dexAMETHasone 4 MG/ML Vial 8 MG IV (10:34)
[2024-10-22] MEDS: Lidocaine 1%/Epi 1:200 (30ml) 30 ML AMPUL (10:58)
[2024-10-22] MEDS: Bupivacaine Mpf 0.5% 30 ML VIAL (10:58)
[2024-10-22] MEDS: Ondansetron 4 MG/2 ML Vial IV (11:56)
--- NOTE | 2024-10-22 12:18 | PCM.POST.ANE ---
Anesthesia: Postop Eval I Current Vital Signs Temperature: 97.9 F Pulse Rate: 80 Blood Pressure: 134/78 Respiratory Rate: 18 Pulse Ox: 93 Oxygen Delivery Method: Nasal Cannula Oxygen Flow Rate (L/min): 3 Assessment Airway patent: Yes Spontaneous unlabored respirations: Yes Mental status: Awake and Calm nausea: No Vomiting: No Anesthesia Complication: No Fluid Hydration Crystalloid volume administer (ml): 1,200 Total IV fluid infused: 1,200 Progress Note Anesthesia document: Postop Eval 1 completed: Yes
--- NOTE | 2024-10-22 12:52 | OP.PCM_ITS ---
Problems Associated Problem List Diagnoses (1) Uterine fibroid: (2) Abnormal uterine bleeding: Operative Report (Standard) Operative Information Date of Procedure: 10/22/24 Pre-Operative Diagnosis: AUB, uterine fibroids Post-Operative Diagnosis: same Surgery/Procedure Performed: LAVH, bilateral salpingoophorectomy route vending machine servicer: Yes Equipment Operator: Digna Posadas Tasks completed by language assistant: Closing, Hemostasis: Electrocautery, Trocar and Retracting Additional pediatric medical assistant?: Yes Additional National Sales Director #2: Yareli Singer MS3 Tasks completed by pediatric medical assistant #2: Closing and Retracting Additional pediatric medical assistant?: No Type of Anesthesia: General RN Documented Start/Stop Times: Operation Date: 10/22/24 09:40 Case Time Into Pre-Op 10/22/24 07:48 Out of Pre-Op 10/22/24 10:16 Anesthesia Start 10/22/24 10:20 Into Room 10/22/24 10:20 Procedure Start 10/22/24 10:39 Procedure End 10/22/24 12:03 Anesthesia End 10/22/24 12:15 Out of Room 10/22/24 12:15 Into Recovery 10/22/24 12:16 Procedure Start Time: 10:39 Procedure Stop Time: 12:03 Select all DRAINS/GRAFTS/IMPLANTS that apply: None Special Medications: none Estimated Blood Loss: 30 Fluids Replaced: 1200 cc LR Specimen collected: Yes Description of specimen(s) removed: uterus, cervix, bilateral fallopian tubes and ovaries Description of surgery: The patient was taken to the operating room where she was prepped and draped in the dorsal lithotomy position. Her arms were tucked to the side and padded and her legs were placed in the yellowfin stirrups. Care was taken to ensure that she was placed in a neurologically safe and neutral position. A weighted specu lum was placed in the vagina and the anterior lip of the cervix was grasped with a single-tooth tenaculum. The uterus sounded to 8 centimeters. The Mckenna uterine manipulator was placed and secured. The Judd catheter was placed to straight drain. Attention was turned to the abdominal portion of the case. Before skin incisions were made they were infiltrated with 0.5% Marcaine solution for local anesthetic. A 5 mm intraumbilical incision was made and while tenting the anterior abdominal wall up with towel clamps a 5 mm blade less trocar and sleeve were advanced directly into the peritoneal cavit using the visible. Peritoneal placement was confirmed with the laparoscope the pneumoperitoneum was created, and the underlying abdominal contents were intact. The patient was placed in Trendelenburg and the above findings were noted. Right and left lateral 5 mm trochars were placed under direct visualization without difficulty. There were some filmy adhesions of colonic epiploica to the left round ligament and these were taken down with blunt and sharp dissection without difficulty. There is also some filmy adhesions to the posterior cervix to some adipose tissue surrounding the colon and this was taken down without difficulty. The ureters were identified and then the infundibulopelvic ligaments were clamped, sealed and transected with the LigaSure device and the pedicles were hemostatic. The round ligaments were clamped sealed and transected and a window was made in the peritoneum. The bladder flap was dissected down with the LigaSure device and blunt dissection and the uterine arteries were then skeletonized. The uterine arteries were clamped, sealed and transected on both sides with the LigaSure device. At this point the pedicles were all examined and found to be hemostatic. Attention was turned to the vaginal portion of the case. 1% lidocaine with dilute epinephrine solution was used to infiltrate the vaginal epithelium around the cervix. An incision was made from around the entire vaginal epithelium and it was dissected back with blunt and sharp dissection. The anterior colpotomy incision was made. The posterior cul-de-sac was entered sharply. The uterosacral ligaments were clamped with Iza clamps, transected and suture-ligated. The lower part of the cardinal ligament was clamped with a Iza clamp, transected and suture-ligated. There is a small amount of peritoneum left on the right side that was clamped with a Iza clamp, transected and suture-ligated. Hemostasis was noted. The uterus was brought out through the colpotomy incision. There is small amount of bleeding near the left vaginal cuff angle and a [id number] 0 Vicryl suture was placed there for hemostasis. A modified Mackay's stitch was then placed with the 2-0 PDS going through the posterior peritoneum reefed across to the right uterosacral, back across the left uterosacral and then backed out through the midline. The posterior cuff was then run with a 2-0 Vicryl running locked suture. The vaginal cuff was then closed in a horizontal fashion with interrupted 0 Vicryl [id number] sutures. Care was taken to secure the vagina to the uterosacral ligaments. A sponge stick was placed in the vagina to help place traction against the vaginal cuff. The laparoscope was reinserted into the abdomen and the pneumoperitoneum was re- created. The pedicles were reexamined and found to be hemostatic. The vaginal cuff was hemostatic. Hemoblast was placed over the cuff and pedicles and no active bleeding was noted. The ureters were seen peristalsing bilaterally well below the pedicles at the end of the case. The right and left lateral ports were taken out and the sites were hemostatic. The pneumoperitoneum was released and even under low pressure there was no bleeding of any of the pedicles are vaginal cuff. The umbilical port was removed. The umbilical skin incisions were closed with Monocryl suture and skin glue by Dr. Agustin. The vaginal instruments were removed by me and a vaginal sweep was completed by me. The surgery was performed by me with assistance. There were no qualified residents available for this procedure. All sponge lap and needle counts were correct and the patient was transferred to the recovery room in stable condition. Surgical Findings: boggy utuers, normal tubes and ovaries Complications Complications: No Admit VTE Documentation VTE Present on Admission: No VTE Mechan Device Prophylaxis: SCD's VTE Pharm Prophylaxis ordered?: No
--- NOTE | 2024-10-22 13:05 | PCM.DC ---
Discharge Instructions Diet Discharge Diet: Light diet - advance as tolerated DC O2, CPAP, BIPAP needs Home O2 Discharge instructions: No Dressing / Incision Return to work on:: 11/16/24 May shower in (days): 1 May resume sexual activity in: 6-8 weeks and - (Nothing in your vagina for 6 weeks. No vaginal or anal intercourse for 6-8 weeks) Dressing / Incision Call your doctor if your incision/area has: Continuous Slow Oozing, Sudden Increased Bleeding and Foul Smelling Discharge Call your doctor if you observe: Fever of 101 or Higher and Using more than 1 pad per hour Cleanse incision/area with: Soap & Water and - (Your incisions have skin glue, it can get wet, leave the glue on until it falls off. ) Follow Up Care Please Follow Up With: Purvi Hendrix MD When: With my office in 1-2 and 6 weeks or as needed. [phone] Test Results: Test results from this visit will be discussed in further detail at your follow-up appointment, if applicable. Discharge Plan Admission Primary Reason for Your Visit: Hysterectomy Attending Provider: Purvi Hendrix Primary Care Provider: Jewell Aguilar Instructions Print Language: Luxembourgish Discharge Orders/Prescriptions Prescriptions: New ibuprofen 600 mg tablet 600 mg PO Q6H PRN (Reason: Pain) 20 Days Qty: 40 0RF oxycodone 5 mg tablet 5 mg PO Q8H PRN PRN (Reason: severe pain) 7 Days Qty: 6 0RF Continued atorvastatin 20 mg tablet 20 mg PO DAILY sertraline 100 mg tablet 200 mg PO DAILY aripiprazole 2 mg tablet 2 mg PO DAILY magnesium citrate 100 mg tablet 100 mg PO DAILY Discontinued norethindrone acetate 5 mg tablet 5 mg PO DAILY Other Ambulatory Orders: 12 Lead EKG (Routine) Location: None Selected Ordered By: Dr. Johnnie Stern Referrals / Follow Up: Jewell Aguilar MD [Primary Care Provider] - Disposition Disposition (needs filled in before D/C Order can be placed): Home, Self Care
--- NOTE | 2024-10-22 23:25 | POSTOPAN2_ITS ---
Anesthesia Postop Eval I Sum Postop Eval Completion status Anesthesia document: Postop Eval 1 completed: Yes Anesthesia Postop Eval I Summary Anesthesia Postop Eval I Summary: Anesthesia Postop Eval I: Assessment Summary Airway patent Yes 10/22/24 12:20 [email or web address] Spontaneous unlabored Yes 10/22/24 12:20 [email or web address] respirations Mental status Awake,Calm 10/22/24 12:20 [email or web address] nausea No 10/22/24 12:20 [email or web address] Vomiting No 10/22/24 12:20 [email or web address] Anesthesia Postop Eval I: Fluid Summary Crystalloid volume administer 1,200 10/22/24 12:20 [email or web address] (ml) Colloids volume administered ( ml) Blood Product volume administered (ml) Total IV fluid infused 1,200 10/22/24 12:20 [email or web address] Anesthesia Postop Eval I: Summary Notes Anesthesia Complication No 10/22/24 12:20 [email or web address] Anesthesia Complication Comment: Post-operative progress note Anesthesia: Postop Eval II Evaluation Mental status: Awake and Calm Pain Level: 1 nausea: No Vomiting: No Complications Anesthesia Complication: No
--- NOTE | 2024-10-22 23:25 | PCM.POSTANE2 ---
Anesthesia Postop Eval I Sum Postop Eval Completion status Anesthesia document: Postop Eval 1 completed: Yes Anesthesia Postop Eval I Summary Anesthesia Postop Eval I Summary: Anesthesia Postop Eval I: Assessment Summary Airway patent Yes 10/22/24 12:20 PUBLIC HEALTH [email or web address] Spontaneous unlabored Yes 10/22/24 12:20 PUBLIC HEALTH [email or web address] respirations Mental status Awake,Calm 10/22/24 12:20 PUBLIC HEALTH [email or web address] nausea No 10/22/24 12:20 PUBLIC HEALTH INSPECTOR.GDOTT Vomiting No 10/22/24 12:20 PUBLIC HEALTH [email or web address] Anesthesia Postop Eval I: Fluid Summary Crystalloid volume administer 1,200 10/22/24 12:20 PUBLIC HEALTH [email or web address].[email or web address] (ml) Colloids volume administered ( ml) Blood Product volume administered (ml) Total IV fluid infused 1,200 10/22/24 12:20 PUBLIC HEALTH [email or web address].[email or web address] Anesthesia Postop Eval I: Summary Notes Anesthesia Complication No 10/22/24 12:20 PUBLIC HEALTH [email or web address].[email or web address] Anesthesia Complication Comment: Post-operative progress note Anesthesia: Postop Eval II Evaluation Mental status: Awake and Calm Pain Level: 1 nausea: No Vomiting: No Complications Anesthesia Complication: No
== END 2024-10-22 15:19 | disposition home or self-care (01) ==
LOC: SDC 07:35 → AC 07:35
PROVIDERS: Anesthesiology; PCP Internal Medicine; Referring Provider Obstetrics & Gynecology; Visit Provider Obstetrics & Gynecology
PROC: 0UT9FZZ Resection of Uterus, Via Natural or Artificial Opening With Percutaneous Endoscopic Assistance (ICD-10-PCS; CPT 58552; principal; 2024-10-22 09:15)
DX: N83.8 Other noninflammatory disorders of ovary, fallopian tube and broad ligament (principal); E78.00 Pure hypercholesterolemia, unspecified; F32.A Depression, unspecified; N83.201 Unspecified ovarian cyst, right side; N80.03 Adenomyosis of the uterus; Z79.899 Other long term (current) drug therapy
CPT/HCPCS: 58552; 00840; 36415; 81025; 82962; 83735; 86850; 86900; 86901; 88307; 93005; J2405; J3475